=== PATIENT | male | born 1930 | race Caucasian/White ===

== ENCOUNTER 2018-07-12 18:57 | Emergency (ER) | payer MEDICARE ==
[~2018-07-12] VITALS: Ht 177.8 cm; Wt 99.8 kg
[2018-07-12 19:50] VITALS: BP_SYST 121
--- NOTE | 2018-07-12 19:50 | NUR ---
Pt placed to ER bed 02, to gown, to quality assurance monitor final. Pt report given to MATTIE Jhaveri.
--- NOTE | 2018-07-12 19:59 | NUR ---
Pt was brought in by daughter from [facility] complaining of left shoulder pain s/p fall. Per daughter, pt was found in his bathroom on the floor. Unknown loss of consciousness and how long patient has been on the floor. Per daughter, pt is more weak and drowsy. Pt is usually "alert and oriented." Pt displays some confusion. Pt is AAO x 2. Noted redness to the back of head. Pt is on blood thinners. Pt able to rotate left shoulder with minor pain. No other injuries/complaints per patient or noted.
--- NOTE | 2018-07-12 20:00 | NUR ---
ER Dr. Bowen at bedside examining patient.
--- NOTE | 2018-07-12 21:00 | NUR ---
# 20 gauge angiocath placed to RAC. Use of asceptic technique. Opsite placed over site. Blood return noted. Blood for lab drawn from site. Flushed with 10 cc of normal saline. No evidence of infiltration noted. Patient tolerated well.
[2018-07-12 21:08] LABS: BASOPHILS # (AUTO) 0.3 K/uL (0.0-0.2); BASOPHILS % (AUTO) 1.6 % (0.0-2.0); HEMATOCRIT 44.5 % (36-54); HEMOGLOBIN 14.4 g/dL (14.0-18.0); LYMPHOCYTES # (AUTO) 0.4 K/uL (1.0-5.5); LYMPHOCYTES % (AUTO) 2.1 % (20.5-51.5); MEAN CORPUSCULAR HEMOGLOBIN 31 pg (27-31); MEAN CORPUSCULAR HGB CONC 32 % (32-36); MEAN CORPUSCULAR VOLUME 97 fL (79.0-98.0); MONOCYTES # (AUTO) 0.7 K/uL (0.0-1.0); MONOCYTES % (AUTO) 4.4 % (1.7-9.3); NEUTROPHILS # (AUTO) 15.5 K/uL (1.8-7.7); NEUTROPHILS % (AUTO) 91.9 % (40.0-70.0); PLATELET COUNT (AUTO) 210 K/uL (130-430); RED BLOOD CELL COUNT(AUTO) 4.58 MIL/uL (4.2-6.2); WHITE BLOOD COUNT (AUTO) 16.9 K/uL (4.8-10.8)
[2018-07-12 21:26] LABS: ANION GAP 6 (5-15); CALCIUM 9.2 mg/dL (8.4-11.0); CHLORIDE 104 mmol/L (98-107); CREATININE 1.27 mg/dL (0.55-1.30); GLUCOSE 159 mg/dL (70-99); POTASSIUM 3.7 mmol/L (3.5-5.1); SODIUM SERUM 138 mmol/L (136-145); UREA NITROGEN, BLOOD 24 mg/dL (8-21)
[2018-07-12 21:30] LABS: ALANINE AMINOTRANSFERASE 22 U/L (12-78); ALBUMIN 3.4 g/dL (3.4-4.8); ASPARTATE AMINOTRANSFERASE 25 U/L (10-37)
[2018-07-12 21:53] LABS: INR 1.9 (0.80-1.20); PROTHROMBIN TIME 18.6 SECS (9.5-12.5)
--- NOTE | 2018-07-12 22:15 | NUR ---
Pt resting comfortably in hospital bed. No acute distress. will continue to monitor.
--- NOTE | 2018-07-12 23:00 | NUR ---
Pt pulled out IV. No bleeding noted. covered with gauze. # 20 gauge angiocath placed to LAC. Use of asceptic technique. Opsite placed over site. Blood return noted. Blood for lab drawn from site. Flushed with 10 cc of normal saline. Covered with Coban. No evidence of infiltration noted. Patient tolerated well.
--- NOTE | 2018-07-13 00:35 | NUR ---
Pt resting comfortably in hospital bed. No acute distress. Will continue to monitor.
--- NOTE | 2018-07-13 01:52 | NUR ---
[facility] arrived for transportation. Report was given.
[2018-07-13 02:09] VITALS: BP_SYST 136
--- NOTE | 2018-07-13 02:10 | NUR ---
Patient to be transferred to [facility]. Is being transferred due to higher level of care. Receiving facility has accepting physician and available space. ER physician has signed transfer form. Patient or responsible constitution party has agreed to transfer and signed form. Patient belongings inventoried and will be sent with patient. Copy of nursing notes, lab reports, EKG, Physicians Orders and X-rays to be sent with patient. Report called to [place] at receiving facility. Receiving physician is Dr. Mohamud. [facility] ambulance service has been called for transfer.
--- NOTE | 2018-07-13 02:10 | NUR ---
Transfer to [facility]. IV present no signs or symptoms of infiltration.
== END 2018-07-13 02:10 | disposition short-term general hospital (02) ==
LOC: SED 18:57
DX: S09.90XA Unspecified injury of head, initial encounter (principal); R55 Syncope and collapse; I48.91 Unspecified atrial fibrillation; M25.511 Pain in right shoulder; M25.512 Pain in left shoulder; X58.XXXA Exposure to other specified factors, initial encounter; Y93.89 Activity, other specified; Y92.89 Other specified places as the place of occurrence of the external cause; Y99.8 Other external cause status
CPT/HCPCS: 36415; 70450-TC; 71045; 80053; 83735-TC; 84484; 85025; 85610-TC; 85730-TC; 99285

== ENCOUNTER 2018-10-16 16:58 | Emergency (ER) | payer MEDICARE ==
[~2018-10-16] VITALS: Ht 177.8 cm; Wt 95.3 kg
[2018-10-16 17:04] VITALS: BP_SYST 146
--- NOTE | 2018-10-16 17:04 | NUR ---
Patient to ER bed 01 to gown for evaluation. Side rails up.
--- NOTE | 2018-10-16 17:10 | NUR ---
ER at bedside examining patient.
--- NOTE | 2018-10-16 17:15 | NUR ---
Pt presents to ED s/p mach fall at home. Pt ambulated w/o walked.Skin tear to RFA. contusion to Same arm. No deformity noted.Pt denies syncope, neck or head pain.
[2018-10-16] MEDS ORDERED: BACITRACIN 1 GM OINT TP ONE (17:21)
--- NOTE | 2018-10-16 17:30 | NUR ---
Patient transported to radiology via WC, accompanied by rad staff.
--- NOTE | 2018-10-16 17:40 | NUR ---
Returned from radiology, back to [facility].
[2018-10-16 18:30] VITALS: BP_SYST 146
--- NOTE | 2018-10-16 18:30 | NUR ---
Patient given written and verbal discharge instructions and verbalizes understanding. ER MD discussed with patient the results and treatment provided. Patient in stable condition. ID arm band removed. No Rx given. Patient educated on pain management and to follow up with PMD. Pain Scale 0. Opportunity for questions provided and answered. Medication side effect fact sheet provided.
== END 2018-10-16 18:30 | disposition home or self-care (01) ==
LOC: SED 16:58
DX: S61.501A Unspecified open wound of right wrist, initial encounter (principal); G89.29 Other chronic pain; M25.561 Pain in right knee; M25.512 Pain in left shoulder; F03.90 Unspecified dementia, unspecified severity, without behavioral disturbance, psychotic disturbance, mood disturbance, and anxiety; I10 Essential (primary) hypertension; W01.0XXA Fall on same level from slipping, tripping and stumbling without subsequent striking against object, initial encounter; Y93.89 Activity, other specified; Y92.89 Other specified places as the place of occurrence of the external cause; Y99.8 Other external cause status
CPT/HCPCS: 73090; 99283